=== PATIENT | male | born 1980 | race Two or more races ===

== ENCOUNTER → 2017-01-09 | Emergency (ER) | payer OTHER ==
[~2017-01-09] MED LIST: FAMOTIDINE 20 MG/50 ML IVPB 20 MG in PREMIX 50 IVPB ONE; FAMOTIDINE 20 MG/50 ML IVPB 50 ML IVPB ONE; ONDANSETRON 4 MG/2 ML VIAL IVPUSH STA; SODIUM CHLORIDE 1,000 ML IV STA
[2017-01-09 21:57] VITALS: BP 120/83; PULSE 88; TEMP 98.6; BMI 25.8
--- NOTE | 2017-01-09 22:08 | PDOC ---
History of Present Illness - General History Source: Patient Exam Limitations: Intoxication - History of Present Illness Initial Comments: 01/09/17 22:15 The patient is a 36 year old male, with a significant past medical history of depression and sciatica, who presents to the emergency department complaining of chest tightness that began this evening s/p consumption of ETOH. The patient reports he was out drinking with his friends earlier this evening, but does not know how much ETOH he consumed. The patient reports he was drinking rum and bourbon. The patient was brought in by his for intoxication. The patient reports he believes he began walking somewhere and lost consciousness. He reports associated dizziness, but denies any fever, chills, cough, or headache. He reports abdominal pain and nausea, but denies vomiting, diarrhea, or constipation. He denies any shortness of breath, palpitations, diaphoresis, lower extremity edema, or lightheadedness. The patients history is limited due to current clinical condition. Allergies: None reported. Past Surgical History: None reported. Social History: Non-smoker. Denies alcohol or drug use. PCP: Dr. Kendrick <Carole De Los Santos - Last Filed: 01/09/17 22:15> - General History Source: Patient <Luis MErnesto chan - Last Filed: 01/09/17 22:35> - General Chief Complaint: Alcohol intoxication Stated Complaint: INTOXICATED Time Seen by Provider: 01/09/17 22:08 Past History <Carole De Los Santos - Last Filed: 01/09/17 22:15> - Past Medical History Suicide Attempt (Hx): No - Surgical History Abdominal Surgery: No Appendectomy: No Cardiac Surgery: No Cholecystectomy: No Lung Surgery: No Neurologic Surgery: No - Immunization History Td Vaccination: Yes TDAP Vaccination: Yes - Psycho/Social/Smoking Cessation Hx Anxiety: No Suicidal Ideation: No Smoking Status: Yes Smoking History: Never smoked Years of Tobacco Use: 0 Have you smoked in the past 12 months: No Number of Cigarettes Smoked Daily: 0 Cigars Per Day: 0 Information on smoking cessation initiated: No Hx Alcohol Use: No Drug/Substance Use Hx: No Substance Use Type: None <Ernesto Rios - Last Filed: 01/09/17 22:35> - Past Medical History Allergies/Adverse Reactions: Allergies Allergy/AdvReac Type Severity Reaction Status Date / Time Penicillins Allergy Verified 01/09/17 21:43 Home Medications: Ambulatory Orders No Home Medications 0 dose .ROUTE UTDICT 08/22/12 Cyclobenzaprine HCl [Flexeril -] 10 mg PO TID PRN #21 tablet MDD 3 07/31/16 Ibuprofen [Motrin -] 800 mg PO TID PRN #21 tablet 07/31/16 Review of Systems - Review of Systems Able to Perform ROS?: Yes Comments:: 01/09/17 22:17 CONSTITUTIONAL: Absent: fever, no chills, no fatigue EYES: Absent: visual changes ENT: Absent: ear pain, no sore throat CARDIOVASCULAR: Present: +chest tightness Absent: no palpitations RESPIRATORY: Absent: cough, no SOB GI: Present: +abdominal pain, +nausea Absent: no vomiting, no constipation, no diarrhea GENITOURINARY: Absent: dysuria, no frequency, no hematuria MUSKULOSKELETAL: Absent: back pain, no arthralgia, no myalgia SKIN: Absent: rash NEURO: Present: +dizziness Absent: headache <Kandi De Los Santosy - Last Filed: 01/09/17 22:15> *Physical Exam - Vital Signs Last Vital Signs Temp Pulse Resp BP Pulse Ox 98.6 F 88 14 120/83 99 01/09/17 21:44 01/09/17 21:44 01/09/17 21:44 01/09/17 21:44 01/09/17 21:44 - Physical Exam Comments: 01/09/17 22:21 GENERAL: Well-appearing, well-nourished. No apparent distress. HEENT: Normocephalic, atraumatic. PERRL, EOM intact. CARDIOVASCULAR: Normal S1, S2. Regular rate and rhythm. PULMONARY: No evidence of respiratory distress. Lungs clear to auscultation bilaterally. Coarse bilateral wheezing. No rales or rhonchi. ABDOMEN: Soft, non-distended, non-tender. EXTREMITIES: Normal ROM in all four extremities. No gross deformities. SKIN: Warm, dry. No rash NEUROLOGICAL: No focal neurological deficits. <Teresa De Los Santosombaldoy - Last Filed: 01/09/17 22:15> - Vital Signs Last Vital Signs Temp Pulse Resp BP Pulse Ox 98.6 F 88 14 120/83 99 01/09/17 21:44 01/09/17 21:44 01/09/17 21:44 01/09/17 21:44 01/09/17 21:44 <Ernesto Rios - Last Filed: 01/09/17 22:35> Medical Decision Making - Medical Decision Making 01/09/17 22:33 Dr. Rios: The scribe's documentation has been prepared under my direction and personally reviewed by me in its entirery. I confirm that the note above accurately reflects all work, treatment, procedures, and medical decision making performed by me. As patient was going to receive treatment, pt eloped. Pt amublated on his own. no need for recall <Ernesto Rios - Last Filed: 01/09/17 22:35> *DC/Admit/Observation/Transfer - Attestations Scribe Attestion: 01/09/17 22:22 Documentation prepared by Carole De Los Santos, acting as emergency medical service coordinator for Ernesto Rios DO. <Carole De Los Santos - Last Filed: 01/09/17 22:15> <Ernesto Rios - Last Filed: 01/09/17 22:35> Diagnosis at time of Disposition: Alcohol abuse - Discharge Dispostion Disposition: ELOPED - Referrals Referrals: Masoud Kendrick MD [Primary Care Provider] - - Patient Instructions Printed Discharge Instructions: DI for Alcohol Abuse
== END | disposition left against medical advice (07) ==
LOC: JER 21:37
DX: F10.10 Alcohol abuse, uncomplicated (principal)
CPT/HCPCS: 99281-25

== ENCOUNTER 2017-01-11 10:00 | Inpatient (IN) | payer OTHER ==
[2017-01-11 10:40] VITALS: BMI 25.8
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
[2017-01-11] MEDS ORDERED: IBUPROFEN 400 MG TABLET (FP) PO PRN (11:57)
[2017-01-11] MEDS ORDERED: ACETAMINOPHEN 325 MG TABLET (FP) PO PRN (11:57)
[2017-01-11] MEDS ORDERED: hydrOXYzine PAMOATE 50 MG CAPSULE (FP) PO PRN (11:57)
[2017-01-11] MEDS ORDERED: chlordiazePOXIDE HCL 25 MG CAPSULE PO PRN (11:57)
[2017-01-11] MEDS ORDERED: MENTHOL/PHENOL 1 EACH UD MM PRN (11:57)
[2017-01-11] MEDS ORDERED: chlordiazePOXIDE HCL 25 MG CAPSULE PO ONE (11:57)
[2017-01-11] MEDS ORDERED: MAGNESIUM HYDROX 2400MG/30ML ORAL SUSPENSION 30 ML CUP PO PRN (11:57)
[2017-01-11] MEDS ORDERED: LOPERAMIDE HCL 2 MG CAPSULE PO PRN (11:57)
[2017-01-11] MEDS ORDERED: MAGNESIUM CITRATE 300 ML BOTTLE PO PRN (11:57)
[2017-01-11] MEDS ORDERED: guaiFENesin/D-METHORPHAN HB 10 ML UNIT-DOSE CUPS PO PRN (11:57)
[2017-01-11] MEDS ORDERED: P-EPHED 60MG/TRIPROLIDI 2.5MG TABLET PO PRN (11:57)
[2017-01-11] MEDS ORDERED: MAG HYDROX/AL HYDROX/SIMETH 30 ML UNIT-DOSE CUP PO PRN (11:57)
[2017-01-11] MEDS ORDERED: NICOTINE POLACRILEX 2 MG GUM BUC PRN (11:59)
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
[2017-01-11] MEDS ORDERED: ZOLPIDEM TARTRATE 10 MG TABLET (PARK CARE ONLY) PO PRN (15:03)
[2017-01-11] MEDS: chlordiazePOXIDE HCL 25 MG CAPSULE PO SCH ×2 (17:29→22:28)
[2017-01-11 18:07] LABS: URINE APPEARANCE CLEAR; URINE BILIRUBIN NEGATIVE (NEGATIVE); URINE BLOOD NEGATIVE (NEGATIVE); URINE COLOR YELLOW; URINE GLUCOSE (UA) NEGATIVE (NEGATIVE); URINE KETONE NEGATIVE (NEGATIVE); URINE NITRITE NEGATIVE (NEGATIVE); URINE PROTEIN NEGATIVE (NEGATIVE); URINE UROBILINOGEN NEGATIVE E.U./dl (0.2-1.0)
[2017-01-11 18:12] LABS: URINE LEUK ESTERASE TRACE (NEGATIVE)
[2017-01-11 18:17] LABS: CALCIUM OXALATE CRYSTALS RARE /hpf (NONE SEEN); URINE BACTERIA RARE /hpf (NONE SEEN); URINE MUCUS RARE; URINE RBC 1 /hpf (0-3); URINE WBC <1 /hpf (3-5)
[2017-01-11] MEDS: THIAMINE HCL 100 MG TABLET (FP) PO SCH (22:28)
[2017-01-12] MEDS: chlordiazePOXIDE HCL 25 MG CAPSULE PO SCH ×4 (05:18→22:12)
[2017-01-12] MEDS: PRENATAL VITAMINS W/ FOLIC ACID TABLET (FP) PO SCH (10:22)
[2017-01-12 10:33] LABS: MCHC 33.9 g/dl (32.0-35.9); MEAN CELL VOLUME 88.7 fl (80-96); MEAN PLT VOLUME 8.1 fl (7.5-11.1); PLATELET COUNT 290 K/MM3 (134-434); WHITE BLOOD COUNT 7.9 K/mm3 (4.0-10.0)
[2017-01-12 10:35] LABS: ALBUMIN 4.1 g/dl (3.4-5.0); ANION GAP 9 (8-16); CO2 27 mmol/L (21-32); GLUCOSE,RANDOM 100 mg/dL (74-106); SGOT/AST 14 U/L (15-37); SGPT/ALT 35 U/L (12-78)
[2017-01-12 10:37] LABS: ALK PHOS 132 U/L (45-117); BILIRUBIN,TOTAL 0.3 mg/dL (0.2-1.0)
[2017-01-12] MEDS ORDERED: CYCLOBENZAPRINE HCL 10 MG TABLET (FP) PO PRN (11:16)
[2017-01-12] MEDS ORDERED: IBUPROFEN 400 MG TABLET (FP) PO PRN (11:16)
--- NOTE | 2017-01-12 11:18 | PN ---
S CIWA - CIWA Score Nausea/Vomitin-No Nausea/No Vomiting Muscle Tremors: 3 Anxiety: 4-Mod. Anxious/Guarded Agitation: 4-Moderately Restless Paroxysmal Sweats: 3 Orientation: 0-Oriented Tacttile Disturbances: 0-None Auditory Disturbances: 0-None Visual Disturbances: 0-None Headache: 0-None Present CIWA-Ar Total Score: 14 BHS Progress Note (SOAP) Subjective: anxiety,tremors,agitation,interrupted sleep,restless Objective: 01/12/17 11:17 Vital Signs - 8 hr 01/12/17 01/12/17 03:30 06:27 Temperature 96.8 F L Pulse Rate 72 Respiratory 18 18 Rate Blood Pressure 114/72 Laboratory Tests 01/11/17 01/12/17 01/12/17 17:40 07:45 07:45 WBC 7.9 RBC 5.14 Hgb 15.5 Hct 45.6 MCV 88.7 MCHC 33.9 RDW 13.0 Plt Count 290 MPV 8.1 Sodium 138 Potassium 4.0 Chloride 102 Carbon Dioxide 27 Anion Gap 9 BUN 13 Creatinine 1.0 Creat Clearance w eGFR > 60 Random Glucose 100 Calcium 9.0 Total Bilirubin 0.3 AST 14 L ALT 35 D Alkaline Phosphatase 132 H D Total Protein 8.0 Albumin 4.1 Urine Color Yellow Urine Appearance Clear Urine pH 6.0 Ur Specific [place] 1.027 Urine Protein Negative Urine Glucose (UA) Negative Urine Ketones Negative Urine Blood Negative Urine Nitrite Negative Urine Bilirubin Negative Urine Urobilinogen Negative Ur Leukocyte Esterase Trace H Urine RBC 1 Urine WBC <1 Ur Epithelial Cells Rare Calcium Oxalate Crystal Rare Urine Bacteria Rare Urine Mucus Rare labs noted Assessment: 01/12/17 11:17 withdrawal sx. Plan: continue detox
[2017-01-12] MEDS: THIAMINE HCL 100 MG TABLET (FP) PO SCH (22:12)
[2017-01-12] MEDS: diphenhydrAMINE HCL 50 MG CAPSULE PO PRN (22:13)
--- NOTE | 2017-01-13 00:48 | EKG ---
Test Reason : Blood Pressure : / mmHG Vent. Rate : 079 BPM Atrial Rate : 079 BPM P-R Int : 156 ms QRS Dur : 084 ms QT Int : 362 ms P-R-T Axes : 066 055 047 degrees QTc Int : 415 ms NORMAL SINUS RHYTHM POSSIBLE LEFT ATRIAL ENLARGEMENT NONSPECIFIC T WAVE ABNORMALITY ABNORMAL ECG WHEN COMPARED WITH ECG OF 26-APR-2008 08:26, T WAVE VARIATION Confirmed by NADEGE OLIVER MD ([id number]) on 01/13/2017 12:48:46 AM Referred By: Confirmed By:NADEGE OLIVER MD
[2017-01-13] MEDS: chlordiazePOXIDE HCL 25 MG CAPSULE PO SCH ×2 (05:24→10:09)
[2017-01-13] MEDS: PRENATAL VITAMINS W/ FOLIC ACID TABLET (FP) PO SCH (10:09)
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
[2017-01-13] MEDS: chlordiazePOXIDE 5 MG CAPSULE PO SCH ×2 (17:25→22:11)
[2017-01-13] MEDS: THIAMINE HCL 100 MG TABLET (FP) PO SCH (22:11)
[2017-01-13] MEDS: diphenhydrAMINE HCL 50 MG CAPSULE PO PRN (22:11)
[2017-01-14] MEDS: chlordiazePOXIDE 5 MG CAPSULE PO SCH ×2 (05:36→10:12)
--- NOTE | 2017-01-14 10:07 | PN ---
[facility] Progress Note (SOAP) Subjective: DECREASED ANXIETY,SWEATS,IRRITABILITY. Objective: 01/14/17 10:07 Vital Signs Temperature 96.4 F L 01/14/17 06:39 Pulse Rate 62 01/14/17 06:39 Respiratory Rate 16 01/14/17 06:39 Blood Pressure 104/71 01/14/17 06:39 O2 Sat by Pulse Oximetry (%) Assessment: 01/14/17 10:07 WITHDRAWAL SX Plan: CONTINUE DETOX
[2017-01-14] MEDS: PRENATAL VITAMINS W/ FOLIC ACID TABLET (FP) PO SCH (10:12)
[2017-01-14] MEDS: chlordiazePOXIDE HCL 10 MG CAPSULE PO SCH ×2 (17:06→22:22)
[2017-01-14] MEDS: THIAMINE HCL 100 MG TABLET (FP) PO SCH (22:22)
[2017-01-14] MEDS: diphenhydrAMINE HCL 50 MG CAPSULE PO PRN (22:23)
[2017-01-15] MEDS: chlordiazePOXIDE HCL 10 MG CAPSULE PO SCH (05:48)
[2017-01-15 06:33] VITALS: BP 113/69; PULSE 60; TEMP 96.8
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
== END 2017-01-15 09:50 | disposition home or self-care (01) | DRG 775 ==
LOC: YASAS 10:00 → Y3N 11:40
PROVIDERS: ADMIT Internal Medicine; ATTEND Internal Medicine
PROC: HZ2ZZZZ Detoxification Services for Substance Abuse Treatment (ICD-10-PCS; principal; 2017-01-11)
DX: F10.230 Alcohol dependence with withdrawal, uncomplicated (principal); M54.42 Lumbago with sciatica, left side; M79.604 Pain in right leg; R26.2 Difficulty in walking, not elsewhere classified; Z99.89 Dependence on other enabling machines and devices
CPT/HCPCS: 36415; 80053; 81003; 81015; 85027; 86593; 93005; 93010

== ENCOUNTER 2020-12-15 18:37 | Emergency (ER) | payer OTHER ==
[2020-12-15 18:58] VITALS: BP 127/89; PULSE 100; TEMP 98.2; BMI 27.3
[2020-12-15] MEDS ORDERED: METOCLOPRAMIDE HCL INJECTION 10 MG/2 ML VIAL IVPUSH ONE (21:42)
[2020-12-15] MEDS ORDERED: ACETAMINOPHEN 1000 MG/100 ML VIAL (NON FORMULARY) IVPB ONE (21:42)
[2020-12-15] MEDS ORDERED: SODIUM CHLORIDE 1,000 ML IV SCH (21:45)
[2020-12-15] MEDS ORDERED: diphenhydrAMINE HCL 25 MG CAPSULE (FP) PO ONE ×2 (22:04→22:54)
[2020-12-15] MEDS ORDERED: ACETAMINOPHEN 500 MG TABLET (FP) PO ONE (22:04)
[2020-12-15] MEDS ORDERED: METOCLOPRAMIDE HCL 10 MG TABLET (FP) PO ONE ×2 (22:04→22:54)
[2020-12-15] MEDS ORDERED: ACETAMINOPHEN 325 MG TABLET (FP) ONE (22:53)
[2020-12-15] MEDS ORDERED: KETOROLAC TROMETHAMINE 15 MG/ML VIAL IM ONE (23:29)
[2020-12-15] MEDS ORDERED: KETOROLAC TROMETHAMINE 15 MG/ML VIAL ONE (23:59)
== END 2020-12-16 00:07 | disposition home or self-care (01) ==
LOC: JER 18:37
PROC: 3E0233Z Introduction of Anti-inflammatory into Muscle, Percutaneous Approach (ICD-10-PCS; principal; 2020-12-15)
DX: R51.9 Headache, unspecified (principal)
CPT/HCPCS: 70450-TC; 99285-25

== ENCOUNTER 2022-06-24 02:01 | Emergency (ER) | payer OTHER ==
[2022-06-24 02:13] VITALS: BP 97/65; PULSE 72; RESP 18; TEMP 98.1; BMI 27.3
[2022-06-24] MEDS ORDERED: FAMOTIDINE 20 MG/50 ML IVPB 20 MG/50 ML MG IVPB ONE ×2 (02:43→03:10)
[2022-06-24] MEDS ORDERED: SODIUM CHLORIDE 0.9% 500 ML INFUS.BAG IV ONE (02:43)
[2022-06-24] MEDS ORDERED: THIAMINE HCL 200 MG/2 ML VIAL IVPB ONE (02:44)
[2022-06-24] MEDS ORDERED: THIAMINE HCL 200 MG/2 ML VIAL ONE (03:10)
[2022-06-24 03:41] LABS: BASO % 0.4 % (0-2.0); HEMATOCRIT 41.4 % (35.4-49); HEMOGLOBIN 14.3 GM/dL (11.7-16.9); LYMPH % 21.1 % (8-40); MCH 31.3 pg (25.7-33.7); MCHC 34.6 g/dl (32.0-35.9); MEAN CELL VOLUME 90.3 fl (80-96); MEAN PLT VOLUME 7.1 fl (7.5-11.1); MONO % 7.5 % (3.8-10.2); PLATELET COUNT 277 10^3/uL (134-434); RBC 4.58 M/mm3 (4.00-5.60); RDW 13.4 % (11.9-15.9)
[2022-06-24 04:03] LABS: ALBUMIN 3.6 g/dl (3.4-5.0); BLOOD UREA NITROGEN 10.2 mg/dL (7-18); CALCIUM 8.4 mg/dL (8.5-10.1); MAGNESIUM 2.3 mg/dL (1.8-2.4)
[2022-06-24 04:06] LABS: CREATININE 0.8 mg/dL (0.55-1.3)
[2022-06-24 04:08] LABS: BILIRUBIN,TOTAL 0.3 mg/dL (0.2-1)
[2022-06-24] MEDS ORDERED: ONDANSETRON 4 MG/2 ML VIAL IVPUSH ONE (04:18)
[2022-06-24] MEDS ORDERED: ONDANSETRON 4 MG/2 ML VIAL ONE (04:26)
== END 2022-06-24 06:29 | disposition home or self-care (01) ==
LOC: JER 02:01
PROC: 3E033GC Introduction of Other Therapeutic Substance into Peripheral Vein, Percutaneous Approach (ICD-10-PCS; principal; 2022-06-24)
DX: F10.929 Alcohol use, unspecified with intoxication, unspecified (principal)
CPT/HCPCS: 36415; 80053; 83690; 83735; 85025; 99284-25

== ENCOUNTER 2023-08-07 13:26 | Inpatient (IN) | payer OTHER ==
[2023-08-07 14:24] VITALS: BMI 21.7
[2023-08-07] MEDS ORDERED: COLLOIDAL OATMEAL 1 BAR EACH TP PRN (18:22)
[2023-08-07] MEDS ORDERED: MAGNESIUM HYDROX 2400MG/30ML ORAL SUSPENSION 30 ML CUP PO PRN (18:22)
[2023-08-07] MEDS ORDERED: ACETAMINOPHEN 325 MG TABLET (FP) PO PRN (18:22)
[2023-08-07] MEDS ORDERED: BENZONATATE 200 MG CAPSULE PO PRN (18:22)
[2023-08-07] MEDS ORDERED: POLYETHYLENE GLYCOL (HEALTHYLAX) 3350 17 GM PACKET PO PRN (18:22)
[2023-08-07] MEDS ORDERED: guaiFENesin 600 MG TABLET.ER (FP) PO PRN (18:22)
[2023-08-07] MEDS ORDERED: BENZOCAINE/MENTHOL (CHLORASEPTIC ) LOZENGE MM PRN (18:22)
[2023-08-07] MEDS ORDERED: LOPERAMIDE HCL 2 MG CAPSULE PO PRN (18:22)
[2023-08-07] MEDS ORDERED: IBUPROFEN 600 MG TABLET (FP) PO PRN (18:22)
[2023-08-07] MEDS ORDERED: MAG HYDROX/AL HYDROX/SIMETH 30 ML UNIT-DOSE CUP PO PRN (18:22)
[2023-08-07] MEDS ORDERED: P-EPHED 60MG/TRIPROLIDI 2.5MG TABLET PO PRN (18:22)
[2023-08-07] MEDS ORDERED: hydrOXYzine PAMOATE 25 MG CAPSULE (FP) PO PRN (18:22)
[2023-08-07] MEDS ORDERED: AMMONIUM LACTATE 12% LOTION 225 GM BOTTLE TP PRN (18:22)
[2023-08-07] MEDS ORDERED: IBUPROFEN 400 MG TABLET (FP) PO PRN (18:22)
[2023-08-07] MEDS: THIAMINE HCL 100 MG TABLET (FP) PO SCH (23:53)
[2023-08-07] MEDS: MELATONIN 5 MG TABLETS PO SCH (23:53)
[2023-08-08] MEDS: PRENATAL VITAMINS W/ FOLIC ACID TABLET (FP) PO SCH (09:01)
[2023-08-08 11:45] LABS: HEMATOCRIT 43.7 % (35.4-49); HEMOGLOBIN 15.4 GM/dL (11.7-16.9); MCH 31.7 pg (25.7-33.7); MCHC 35.4 g/dl (32.0-35.9); MEAN CELL VOLUME 89.7 fl (80-96); MEAN PLT VOLUME 8.3 fl (7.5-11.1); PLATELET COUNT 286 10^3/uL (134-434); RBC 4.87 M/mm3 (4.00-5.60); RDW 13.8 % (11.9-15.9); WHITE BLOOD COUNT 7.4 K/mm3 (4.0-10.0)
[2023-08-08 12:03] LABS: POTASSIUM 4.4 mmol/L (3.5-5.1)
[2023-08-08 12:18] LABS: ALBUMIN 3.7 g/dl (3.4-5.0); BLOOD UREA NITROGEN 16.7 mg/dL (7-18)
[2023-08-08 12:20] LABS: CALCIUM 8.9 mg/dL (8.5-10.1); CREATININE 0.9 mg/dL (0.55-1.3)
[2023-08-08 12:23] LABS: BILIRUBIN,TOTAL 0.4 mg/dL (0.2-1); TOT PROT 7.1 g/dl (6.4-8.2)
[2023-08-08 12:40] LABS: SYPHILIS W/ RPR CONF NON-REACTIVE (NONREACTIVE)
[2023-08-08 17:44] LABS: URINE APPEARANCE CLOUDY; URINE BILIRUBIN NEGATIVE (NEGATIVE); URINE COLOR YELLOW; URINE GLUCOSE (UA) NEGATIVE (NEGATIVE); URINE KETONE NEGATIVE (NEGATIVE); URINE LEUK ESTERASE NEGATIVE (NEGATIVE); URINE NITRITE NEGATIVE (NEGATIVE); URINE PROTEIN TRACE (NEGATIVE)
[2023-08-08] MEDS: MELATONIN 5 MG TABLETS PO SCH (21:42)
[2023-08-08] MEDS: THIAMINE HCL 100 MG TABLET (FP) PO SCH (21:42)
[2023-08-09] MEDS: PRENATAL VITAMINS W/ FOLIC ACID TABLET (FP) PO SCH (10:22)
[2023-08-09] MEDS: MELATONIN 5 MG TABLETS PO SCH (21:26)
[2023-08-09] MEDS: THIAMINE HCL 100 MG TABLET (FP) PO SCH (21:26)
[2023-08-10] MEDS: PRENATAL VITAMINS W/ FOLIC ACID TABLET (FP) PO SCH (10:07)
[2023-08-10] MEDS: THIAMINE HCL 100 MG TABLET (FP) PO SCH (21:26)
[2023-08-10] MEDS: MELATONIN 5 MG TABLETS PO SCH (21:26)
[2023-08-11] MEDS: PRENATAL VITAMINS W/ FOLIC ACID TABLET (FP) PO SCH (10:14)
[2023-08-11] MEDS: THIAMINE HCL 100 MG TABLET (FP) PO SCH (21:19)
[2023-08-11] MEDS: MELATONIN 5 MG TABLETS PO SCH (21:19)
[2023-08-12] MEDS: PRENATAL VITAMINS W/ FOLIC ACID TABLET (FP) PO SCH (09:58)
[2023-08-12] MEDS: MELATONIN 5 MG TABLETS PO SCH (21:37)
[2023-08-12] MEDS: THIAMINE HCL 100 MG TABLET (FP) PO SCH (21:37)
[2023-08-13] MEDS: PRENATAL VITAMINS W/ FOLIC ACID TABLET (FP) PO SCH (10:23)
[2023-08-13] MEDS: THIAMINE HCL 100 MG TABLET (FP) PO SCH (21:43)
[2023-08-13] MEDS: MELATONIN 5 MG TABLETS PO SCH (21:44)
[2023-08-14] MEDS: PRENATAL VITAMINS W/ FOLIC ACID TABLET (FP) PO SCH (10:20)
[2023-08-14 17:34] VITALS: BP 131/76; PULSE 72; RESP 18; TEMP 97.2
== END 2023-08-14 17:45 | disposition home or self-care (01) | DRG 895 ==
LOC: YASAS 13:26 → Y3E 23:25
PROVIDERS: ADMIT Allergy & Immunology; ATTEND Psychiatry & Neurology Pain Medicine
PROC: HZ42ZZZ Group Counseling for Substance Abuse Treatment, Cognitive-Behavioral (ICD-10-PCS; principal; 2023-08-07)
DX: F10.20 Alcohol dependence, uncomplicated (principal); F17.290 Nicotine dependence, other tobacco product, uncomplicated; Z88.0 Allergy status to penicillin
CPT/HCPCS: 36415; 80053; 81003; 85027; 86780; 86803; 87635